=== PATIENT | female | born 1995 | race Caucasian/White ===

== ENCOUNTER 2017-11-21 14:19 | Emergency (ER) | payer BC, OTHER ==
--- NOTE | 2017-11-21 15:12 | EDM.PDOC ---
ED HPI GENERAL MEDICAL PROBLEM - General Chief Complaint: Head Injury Stated Complaint: BUMP FOREHEAD Time Seen by Provider: 11/21/17 15:09 Source of Information: Reports: Patient History Limitations: Reports: No Limitations - History of Present Illness INITIAL COMMENTS - FREE TEXT/NARRATIVE: HISTORY AND PHYSICAL: []21-year-old female presenting with injury to mid forehead just above the bridge of her nose History of Present Illness: []Patient was playing softball and missed the ball striking her in the face Review of Systems: As per history of present illness and below otherwise all systems reviewed and negative. Past medical history: As per history of present illness and as reviewed below otherwise noncontributory. Surgical history: As per history of present illness and as reviewed below otherwise noncontributory. Social history: No reported history of drug or alcohol abuse. Family history: As per history of present illness and as reviewed below otherwise noncontributory. Physical exam: Alert oriented female who feels somewhat dizzy during questions appropriately in full sentences without any shortness of breath HEENT: Atraumatic, normocehpalic, pupils reactive, negative for conjunctival pallor or scleral icterus, mucous membranes moist, throat clear, neck supple, nontender, trachea midline. The nystagmus is present pupils are equal and hand grasp are equal Lungs: Clear to auscultation, breath sounds equal bilaterally, chest non tender. Heart: S1S2, regular, negative for clicks, rubs, or JVD. Abdomen: Soft, nondistended, nontender. Negative for masses or hepatossplenmegaly. Negative for costovertebral tenderness. Pelvis: Stable nontender. Genitourinary: Deferred. Rectal: Deferred Extremities: Atraumatic, negative for cords or calf pain. Neurovascular unremarkable. Neuro: Awake, alert, oriented. Cranial nerves II through XII unremarkable. Cerebellum unremarkable. Motor and sensory unremarkable throughout. Exam nonfocal. Neurological grossly intact Discussed the negative CT scan of fractures no bleeds with the patient. 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 Onset: Today, Sudden headache Pain Score (Numeric/FACES): 7 - Related Data Allergies Allergy/AdvReac Type Severity Reaction Status Date / Time No Known Allergies Allergy Verified 11/21/17 14:40 Home Meds: Home Meds Amphetamine/Dextroamphetamine [Adderall] 25 mg PO DAILY 11/21/17 [History] Desvenlafaxine [Desvenlafaxine ER] 11/21/17 [History] buPROPion [Wellbutrin] 100 mg PO DAILY 11/21/17 [History] Past Medical History - Past Health History Medical/Surgical History: Denies Medical/Surgical History Psychiatric History: Reports: Anxiety, Depression - Infectious Disease History Infectious Disease History: Reports: None Social & Family History - Family History Family Medical History: Noncontributory - Tobacco Use Smoking Status *Q: Current Every Day Smoker Years of Tobacco use: 9 Packs/Tins Daily: 0.5 - Recreational Drug Use Recreational Drug Use: No ED ROS GENERAL - Review of Systems Review Of Systems: ROS reveals no pertinent complaints other than HPI. ED EXAM, HEAD INJURY - Physical Exam Exam: See Below (See dictation) Course - Vital Signs Last Recorded V/S: Last Vital Signs Temp 36.0 C 11/21/17 14:42 Pulse 98 11/21/17 14:42 Resp 20 11/21/17 14:42 BP 153/90 H 11/21/17 14:42 Pulse Ox 97 11/21/17 14:42 - Orders/Labs/Meds Orders: Active Orders 24 hr Category Date Time Status Head wo Cont [CT] Stat Exams 11/21/17 15:12 Taken HCG QUALITATIVE,URINE [URCHEM] Stat Lab 11/21/17 15:10 Ordered UA W/MICROSCOPIC [URIN] Stat Lab 11/21/17 15:10 Ordered Labs: Laboratory Tests 11/21/17 11/21/17 Range/Units 15:10 15:10 Urine Color YELLOW Urine Appearance CLEAR Urine pH 6.0 (5.0-8.0) Ur Specific [place] >= 1.030 (1.001-1.035) Urine Protein NEGATIVE (NEGATIVE) mg/dL Urine Glucose (UA) NEGATIVE (NEGATIVE) mg/dL Urine Ketones 15 H (NEGATIVE) mg/dL Urine Occult Blood NEGATIVE (NEGATIVE) Urine Nitrite NEGATIVE (NEGATIVE) Urine Bilirubin NEGATIVE (NEGATIVE) Urine Urobilinogen 0.2 (<2.0) EU/dL Ur Leukocyte Esterase NEGATIVE (NEGATIVE) Urine RBC NONE SEEN (0-2/HPF) Urine WBC 1-3 (0-5/HPF) Ur Epithelial Cells MANY (NONE-FEW) Urine Bacteria FEW (NEGATIVE) Urine HCG, Qual NEGATIVE (NEGATIVE) Departure - Departure Time of Disposition: 16:54 Disposition: Home, Self-Care 01 Condition: Good Clinical Impression: Concussion with no loss of consciousness - Discharge Information Instructions: Head Injury, Adult Referrals: PCP,None [Primary Care Provider] - Eliana Rocha MD [Physician] - Forms: ED Department Discharge Additional Instructions: The following information is given to patients seen in the emergency department who are being discharged to home. This information is to outline your options for follow-up care. We provide all patients seen in our emergency department with a follow-up referral. The need for follow-up, as well as the timing and circumstances, are variable depending upon the specifics of your emergency department visit. If you don't have a primary care physician on staff, we will provide you with a referral. We always advise you to contact your personal physician following an emergency department visit to inform them of the circumstance of the visit and for follow-up with them and/or the need for any referrals to a consulting specialist. The emergency department will also refer you to a specialist when appropriate. This referral assures that you have the opportunity for followup care with a specialist. All of these measure are taken in an effort to provide you with optimal care, which includes your followup. Under all circumstances we always encourage you to contact your private physician who remains a resource for coordinating your care. When calling for followup care, please make the office aware that this follow-up is from your recent emergency room visit. If for any reason you are refused follow-up, please contact the [facility] emergency department at and asked to speak to the emergency department charge nurse. Off work 48 hours Referral has been made to Dr. Rocha, neurology [facility] - Neu[facility] Professional Building [address] [place] [address], [address] [place] [address] Follow up with your primary care provider Return to the emergency department as needed - My Orders Last 24 Hours: My Active Orders 11/21/17 15:12 Head wo Cont [CT] Stat - Assessment/Plan Last 24 Hours: My Active Orders 11/21/17 15:12 Head wo Cont [CT] Stat
--- NOTE | 2017-11-22 16:02 | CT ---
EXAM DATE: 11/21/17 PATIENT'S AGE: 21 Patient: VALE CAMPOS Facility: [place], [place] Site . Site : 1995 Study: CT Head WO CONT [id number] 4:17:36 PM Ordering Physician: Doctor Heredia Final Report: INDICATION: Pain. Struck in the forehead with a softball. TECHNIQUE: CT Head without contrast. COMPARISON: None. FINDINGS: CSF spaces: Within normal limits for age. Brain parenchyma: The mock-white differentiation is normal. No sign of mass, hemorrhage, or midline shift. Skull base and calvarium: The visualized paranasal sinuses and mastoid air cells are clear. The visualized orbits are grossly unremarkable. No skull fractures. Small scalp hematoma just above the nasal bridge. IMPRESSION: No acute intracranial finding. Small total scalp hematoma. Please note that all CT scans at this facility use dose modulation, iterative reconstruction, and/or weight-based dosing when appropriate to reduce radiation dose to as low as reasonably achievable. Dictated by Dontae Haskins MD @ Nov 21 2017 4:25PM (Electronic Signature) Report Signed by Proxy. GEORGE
== END 2017-11-21 17:07 | disposition home or self-care (01) ==
LOC: MW.ED 14:19
DX: S06.0X0A Concussion without loss of consciousness, initial encounter (principal); F17.210 Nicotine dependence, cigarettes, uncomplicated; W21.07XA Struck by softball, initial encounter
CPT/HCPCS: 70450; 70450-26; 81001; 81025; 99282; 99284-25

== ENCOUNTER 2019-04-21 02:00 | Emergency (ER) | payer BC | END 2019-04-21 02:57 | disposition left against medical advice (07) | LOC: MW.ED 02:00 | DX: Z53.21 Procedure and treatment not carried out due to patient leaving prior to being seen by health care provider (principal) | CPT/HCPCS: 74177-26 ==

== ENCOUNTER 2019-04-21 09:56 | Day surgery (SDC) | payer BC ==
--- NOTE | 2019-04-21 10:10 | EDM.PDOC ---
ED HPI GENERAL MEDICAL PROBLEM - General Chief Complaint: Abdominal Pain Stated Complaint: [facility] Time Seen by Provider: 04/21/19 10:09 Source of Information: Reports: Patient History Limitations: Reports: No Limitations - History of Present Illness INITIAL COMMENTS - FREE TEXT/NARRATIVE: HISTORY AND PHYSICAL: History of present illness: Patient is a 23-year-old female presents to the ED with complaint of abdominal pain. She states that it started yesterday and has progressively gotten worse. The pain is all over but mostly on the right lower quadrant. She states it does radiate into her back. She states she's been nauseous but denies vomiting. She initially had some nonbloody diarrhea this has resolved and her last bowel movement was last night. She denies dysuria, hematuria fevers, chills, cough, sick contacts. LMP approximately 4 weeks ago. Review of systems: As per history of present illness and below otherwise all systems reviewed and negative. Past medical history: As per history of present illness and as reviewed below otherwise noncontributory. Surgical history: As per history of present illness and as reviewed below otherwise noncontributory. Social history: No reported history of drug or alcohol abuse. Family history: As per history of present illness and as reviewed below otherwise noncontributory. Physical exam: General: Patient sitting comfortably in no acute distress and nontoxic appearing HEENT: Atraumatic, normocephalic, pupils reactive, negative for conjunctival pallor or scleral icterus, mucous membranes moist, throat clear, neck supple, nontender, trachea midline. No meningeal signs. Lungs: Clear to auscultation, breath sounds equal bilaterally, chest nontender. Heart: S1S2, regular, negative for clicks, rubs, or overt murmur. Abdomen: Diffuse abdominal tenderness to palpation with more significant tenderness to the right lower quadrant. Soft, nondistended. Negative for masses or hepatosplenomegaly. Negative for costovertebral tenderness. No rigidity, rebound, guarding. Pelvis: Stable nontender. Genitourinary: Deferred. Rectal: Deferred. Extremities: Atraumatic, negative for cords or calf pain. Neurovascular unremarkable. Neuro: Awake, alert, oriented. Cranial nerves II through XII unremarkable. Cerebellum unremarkable. Motor and sensory unremarkable throughout. Exam nonfocal. Notes: Diagnostics: CBC, CMP, lipase, UA, urine hcg, CT abdomen/pelvis w/ contrast Therapeutics: 1L NS IV 30mg Toradol IV 4mg Morphine IV Prescriptions: Impression: Acute appendicitis Plan: Dr. Tillman consulted patient in ED and she will be taken to OR for appendectomy Definitive disposition and diagnosis as appropriate pending reevaluation and review of above. Abdominal Pain Score (Numeric/FACES): 8 - Related Data Allergies Allergy/AdvReac Type Severity Reaction Status Date / Time No Known Allergies Allergy Verified 04/21/19 10:03 Home Meds: Home Meds Desvenlafaxine [Desvenlafaxine ER] 11/21/17 [History] Dextroamphetamine [Dextrostat] 10 mg PO ASDIRECTED 04/21/19 [History] Topiramate [Topamax] 100 mg PO DAILY 04/21/19 [History] Past Medical History - Past Health History Medical/Surgical History: Denies Medical/Surgical History Psychiatric History: Reports: Anxiety, Depression - Infectious Disease History Infectious Disease History: Reports: None Social & Family History - Family History Family Medical History: Noncontributory ED ROS GENERAL - Review of Systems Review Of Systems: ROS reveals no pertinent complaints other than HPI. ED EXAM, GI/ABD - Physical Exam Exam: See Below (see dictation) Course - Vital Signs Last Recorded V/S: Last Vital Signs Temp 97.6 F 04/21/19 10:06 Pulse 97 04/21/19 12:41 Resp 17 04/21/19 12:41 BP 108/72 04/21/19 12:41 Pulse Ox 98 04/21/19 12:41 - Orders/Labs/Meds Orders: Active Orders 24 hr Category Date Time Status Abdomen Pelvis w Cont [CT] Stat Exams 04/21/19 12:18 Ordered Sodium Chloride 0.9% [Saline Flush] Med 04/21/19 10:16 Active 10 ml FLUSH ASDIRECTED PRN Sodium Chloride 0.9% [Saline Flush] Med 04/21/19 10:16 Active 2.5 ml FLUSH ASDIRECTED PRN Saline Lock Insert [OM.PC] Stat Oth 04/21/19 10:16 Ordered Medication Orders Sodium Chloride (Saline Flush) 10 ml FLUSH ASDIRECTED PRN PRN Reason: Keep Vein Open Sodium Chloride (Saline Flush) 2.5 ml FLUSH ASDIRECTED PRN PRN Reason: Keep Vein Open Labs: Laboratory Tests 04/21/19 04/21/19 04/21/19 Range/Units 10:50 10:50 11:05 WBC 19.85 H (4.0-11.0) K/uL RBC 4.21 L (4.30-5.90) M/uL Hgb 13.7 (12.0-16.0) g/dL Hct 40.1 (36.0-46.0) % MCV 95.2 (80.0-98.0) fL MCH 32.5 H (27.0-32.0) pg MCHC 34.2 (31.0-37.0) g/dL RDW Std Deviation 43.3 (28.0-62.0) fl RDW Coeff of Talib 13 (11.0-15.0) % Plt Count 233 (150-400) K/uL MPV 10.10 (7.40-12.00) fL Neut % (Auto) 80.7 H (48.0-80.0) % Lymph % (Auto) 8.0 L (16.0-40.0) % [place] % (Auto) 10.8 (0.0-15.0) % Eos % (Auto) 0.3 (0.0-7.0) % Baso % (Auto) 0.2 (0.0-1.5) % Neut # (Auto) 16.0 H (1.4-5.7) K/uL Lymph # (Auto) 1.6 (0.6-2.4) K/uL [place] # (Auto) 2.2 H (0.0-0.8) K/uL Eos # (Auto) 0.1 (0.0-0.7) K/uL Baso # (Auto) 0.0 (0.0-0.1) K/uL Nucleated RBC % 0.0 /100WBC Nucleated RBCs # 0 K/uL Sodium 140 (136-145) mmol/L Potassium 3.7 (3.5-5.1) mmol/L Chloride 106 (98-107) mmol/L Carbon Dioxide 22.0 (21.0-32.0) mmol/L BUN 8 (7.0-18.0) mg/dL Creatinine 0.8 (0.6-1.0) mg/dL Est Cr Clr Drug Dosing 88.93 mL/min Estimated GFR (MDRD) > 60.0 ml/min Glucose 109 H (74-106) mg/dL Calcium 8.8 (8.5-10.1) mg/dL Total Bilirubin 1.1 H (0.2-1.0) mg/dL AST 17 (15-37) IU/L ALT 21 (14-63) IU/L Alkaline Phosphatase 61 (46-116) U/L Total Protein 7.5 (6.4-8.2) g/dL Albumin 3.7 (3.4-5.0) g/dL Globulin 3.8 (2.6-4.0) g/dL Albumin/Globulin Ratio 1.0 (0.9-1.6) Lipase 106 (73-393) U/L Urine Color YELLOW Urine Appearance HAZY Urine pH 6.5 (5.0-8.0) Ur Specific [place] 1.010 (1.001-1.035) Urine Protein NEGATIVE (NEGATIVE) mg/dL Urine Glucose (UA) NEGATIVE (NEGATIVE) mg/dL Urine Ketones NEGATIVE (NEGATIVE) mg/dL Urine Occult Blood NEGATIVE (NEGATIVE) Urine Nitrite NEGATIVE (NEGATIVE) Urine Bilirubin SMALL H (NEGATIVE) Urine Ictotest POSITIVE Urine Urobilinogen 0.2 (<2.0) EU/dL Ur Leukocyte Esterase NEGATIVE (NEGATIVE) Urine HCG, Qual (NEGATIVE) 04/21/19 Range/Units 11:05 WBC (4.0-11.0) K/uL RBC (4.30-5.90) M/uL Hgb (12.0-16.0) g/dL Hct (36.0-46.0) % MCV (80.0-98.0) fL MCH (27.0-32.0) pg MCHC (31.0-37.0) g/dL RDW Std Deviation (28.0-62.0) fl RDW Coeff of Talib (11.0-15.0) % Plt Count (150-400) K/uL MPV (7.40-12.00) fL Neut % (Auto) (48.0-80.0) % Lymph % (Auto) (16.0-40.0) % [place] % (Auto) (0.0-15.0) % Eos % (Auto) (0.0-7.0) % Baso % (Auto) (0.0-1.5) % Neut # (Auto) (1.4-5.7) K/uL Lymph # (Auto) (0.6-2.4) K/uL [place] # (Auto) (0.0-0.8) K/uL Eos # (Auto) (0.0-0.7) K/uL Baso # (Auto) (0.0-0.1) K/uL Nucleated RBC % /100WBC Nucleated RBCs # K/uL Sodium (136-145) mmol/L Potassium (3.5-5.1) mmol/L Chloride (98-107) mmol/L Carbon Dioxide (21.0-32.0) mmol/L BUN (7.0-18.0) mg/dL Creatinine (0.6-1.0) mg/dL Est Cr Clr Drug Dosing mL/min Estimated GFR (MDRD) ml/min Glucose (74-106) mg/dL Calcium (8.5-10.1) mg/dL Total Bilirubin (0.2-1.0) mg/dL AST (15-37) IU/L ALT (14-63) IU/L Alkaline Phosphatase (46-116) U/L Total Protein (6.4-8.2) g/dL Albumin (3.4-5.0) g/dL Globulin (2.6-4.0) g/dL Albumin/Globulin Ratio (0.9-1.6) Lipase (73-393) U/L Urine Color Urine Appearance Urine pH (5.0-8.0) Ur Specific [place] (1.001-1.035) Urine Protein (NEGATIVE) mg/dL Urine Glucose (UA) (NEGATIVE) mg/dL Urine Ketones (NEGATIVE) mg/dL Urine Occult Blood (NEGATIVE) Urine Nitrite (NEGATIVE) Urine Bilirubin (NEGATIVE) Urine Ictotest Urine Urobilinogen (<2.0) EU/dL Ur Leukocyte Esterase (NEGATIVE) Urine HCG, Qual NEGATIVE (NEGATIVE) Meds: Medications Generic Name Dose Route Start Last Admin Trade Name Freq PRN Reason Stop Dose Admin Sodium Chloride 10 ml 04/21/19 10:16 Saline Flush FLUSH ASDIRECTED PRN Keep Vein Open Sodium Chloride 2.5 ml 04/21/19 10:16 Saline Flush FLUSH ASDIRECTED PRN Keep Vein Open Discontinued Medications Generic Name Dose Route Start Last Admin Trade Name Facundo PRN Reason Stop Dose Admin Sodium Chloride 1,000 mls @ 999 mls/hr 04/21/19 10:16 04/21/19 10:47 Normal Saline IV 04/21/19 11:16 999 mls/hr STAT ONE Administration Iopamidol 100 ml 04/21/19 11:50 04/21/19 11:52 Isovue Multipack-370 (76%) IVPUSH 04/21/19 11:51 100 ml ONETIME STA Administration Ketorolac Tromethamine 30 mg 04/21/19 10:16 04/21/19 10:46 Toradol IVPUSH 04/21/19 10:17 30 mg ONETIME ONE Administration Morphine Sulfate 4 mg 04/21/19 11:21 04/21/19 11:27 Morphine IVPUSH 04/21/19 11:22 4 mg ONETIME ONE Administration Departure - Departure Time of Disposition: 13:06 Disposition: Still A Patient 30 Condition: Good Clinical Impression: Acute appendicitis - Discharge Information Referrals: PCP,Unknown [Primary Care Provider] - Forms: ED Department Discharge - My Orders Last 24 Hours: My Active Orders 04/21/19 10:16 Sodium Chloride 0.9% [Saline Flush] 10 ml FLUSH ASDIRECTED PRN Sodium Chloride 0.9% [Saline Flush] 2.5 ml FLUSH ASDIRECTED PRN Saline Lock Insert [OM.PC] Stat 04/21/19 12:18 Abdomen Pelvis w Cont [CT] Stat - Assessment/Plan Last 24 Hours: My Active Orders 04/21/19 10:16 Sodium Chloride 0.9% [Saline Flush] 10 ml FLUSH ASDIRECTED PRN Sodium Chloride 0.9% [Saline Flush] 2.5 ml FLUSH ASDIRECTED PRN Saline Lock Insert [OM.PC] Stat 04/21/19 12:18 Abdomen Pelvis w Cont [CT] Stat
[2019-04-21] MEDS ORDERED: Ketorolac 30 MG/ML SDV IVPUSH ONE (10:16)
[2019-04-21] MEDS ORDERED: Sodium Chloride 0.9% 2.5 ML Syringe FLUSH PRN (10:16)
[2019-04-21] MEDS ORDERED: Sodium Chloride 0.9% 1,000 ML IV ONE (10:16)
[2019-04-21] MEDS ORDERED: Sodium Chloride 0.9% 10 ML Syringe FLUSH PRN (10:16)
[2019-04-21] MEDS ORDERED: Morphine 4 MG/ML Syringe IVPUSH ONE (11:21)
[2019-04-21 11:22] LABS: BLOOD UREA NITROGEN,BUN 8 mg/dL (7.0-18.0); CHLORIDE,CL 106 mmol/L (98-107); GLUCOSE RANDOM 109 mg/dL (74-106); LIPASE 106 U/L (73-393); POTASSIUM,K 3.7 mmol/L (3.5-5.1); SODIUM,NA 140 mmol/L (136-145)
[2019-04-21] MEDS ORDERED: Iopamidol 755 MG/ML 500 ML Multipack Bottle IVPUSH STA (11:50)
--- NOTE | 2019-04-21 12:12 | CT ---
CT abdomen and pelvis Technique: Multiple axial sections were obtained from above the dome of the diaphragm inferiorly through the pubic symphysis. Intravenous contrast was utilized. No oral contrast was given. Findings: Visualized lung bases show nothing acute. Liver contains no focal parenchymal abnormality. Spleen appears within normal limits. Adrenal glands show no nodule. Pancreas appears within normal limits. Gallbladder contains no calcified gallstones. Kidneys show symmetric contrast enhancement without hydronephrosis or mass. Aorta shows no aneurysm. No retroperitoneal adenopathy or mesenteric abnormalities are seen. No pelvic mass or adenopathy is seen. Dominant follicle appears to be present within the left ovary measuring 2.5 cm. Several areas of increased density are noted within the appendix which is felt to be due to appendicoliths. Appendix is prominent in size measuring 1.1 cm. There is also felt to be mild inflammatory change around the appendix. Findings are felt compatible with early appendicitis. No other inflammatory change is seen. No free fluid is identified. Bone window settings were reviewed which shows spondylolisthesis at L5-S1 which measures 1.2 cm. This space narrowing also noted at L5-S1 with bilateral spondylolytic defects being seen. Impression: 1. Findings compatible with early appendicitis as described above. 2. Spondylolisthesis with disc space narrowing at L5-S1 due to spondylolytic defects. 3. No additional abnormality is appreciated on CT study of the abdomen and pelvis. Diagnostic code #5 MTDD
[2019-04-21] MEDS ORDERED: cefOXitin 2 GM in Premix Bag 1 BAG IV ONE (13:07)
--- NOTE | 2019-04-21 13:26 | PCM.PREANE ---
Preanesthetic Assessment - Anesthesia/Transfusion/Family Hx Anesthesia History: No Prior Anesthesia (local anesthetic for dental extractions ) Family History of Anesthesia Reaction: No - Review of Systems General: No Symptoms Pulmonary: Cough Cardiovascular: No Symptoms Gastrointestinal: Abdominal Pain Neurological: No Symptoms Other: Reports: None - Physical Assessment NPO Status Date: 04/21/19 NPO Status Time: 08:00 Vital Signs: Last Vital Signs Temp 36.4 C 04/21/19 10:06 Pulse 97 04/21/19 12:41 Resp 17 04/21/19 12:41 BP 108/72 04/21/19 12:41 Pulse Ox 98 04/21/19 12:41 Height: 1.6 m Weight: 90.718 kg ASA Class: 2E Mental Status: Alert & Oriented x3 Airway Class: Mallampati = 3 Dentition: Reports: Missing Tooth/Teeth (right lower molar and wisdom teeth) ROM/Head Extension: Full Lungs: Clear to Auscultation, Normal Respiratory Effort Cardiovascular: Regular Rate, Regular Rhythm - Lab Values: Laboratory Last Values WBC 19.85 K/uL (4.0-11.0) H 04/21/19 10:50 RBC 4.21 M/uL (4.30-5.90) L 04/21/19 10:50 Hgb 13.7 g/dL (12.0-16.0) 04/21/19 10:50 Hct 40.1 % (36.0-46.0) 04/21/19 10:50 MCV 95.2 fL (80.0-98.0) 04/21/19 10:50 MCH 32.5 pg (27.0-32.0) H 04/21/19 10:50 MCHC 34.2 g/dL (31.0-37.0) 04/21/19 10:50 RDW Std Deviation 43.3 fl (28.0-62.0) 04/21/19 10:50 RDW Coeff of Talib 13 % (11.0-15.0) 04/21/19 10:50 Plt Count 233 K/uL (150-400) 04/21/19 10:50 MPV 10.10 fL (7.40-12.00) 04/21/19 10:50 Neut % (Auto) 80.7 % (48.0-80.0) H 04/21/19 10:50 Lymph % (Auto) 8.0 % (16.0-40.0) L 04/21/19 10:50 [place] % (Auto) 10.8 % (0.0-15.0) 04/21/19 10:50 Eos % (Auto) 0.3 % (0.0-7.0) 04/21/19 10:50 Baso % (Auto) 0.2 % (0.0-1.5) 04/21/19 10:50 Neut # (Auto) 16.0 K/uL (1.4-5.7) H 04/21/19 10:50 Lymph # (Auto) 1.6 K/uL (0.6-2.4) 04/21/19 10:50 [place] # (Auto) 2.2 K/uL (0.0-0.8) H 04/21/19 10:50 Eos # (Auto) 0.1 K/uL (0.0-0.7) 04/21/19 10:50 Baso # (Auto) 0.0 K/uL (0.0-0.1) 04/21/19 10:50 Nucleated RBC % 0.0 /100WBC 04/21/19 10:50 Nucleated RBCs # 0 K/uL 04/21/19 10:50 Sodium 140 mmol/L (136-145) 04/21/19 10:50 Potassium 3.7 mmol/L (3.5-5.1) 04/21/19 10:50 Chloride 106 mmol/L (98-107) 04/21/19 10:50 Carbon Dioxide 22.0 mmol/L (21.0-32.0) 04/21/19 10:50 BUN 8 mg/dL (7.0-18.0) 04/21/19 10:50 Creatinine 0.8 mg/dL (0.6-1.0) 04/21/19 10:50 Est Cr Clr Drug Dosing 88.93 mL/min 04/21/19 10:50 Estimated GFR (MDRD) > 60.0 ml/min 04/21/19 10:50 Glucose 109 mg/dL (74-106) H 04/21/19 10:50 Calcium 8.8 mg/dL (8.5-10.1) 04/21/19 10:50 Total Bilirubin 1.1 mg/dL (0.2-1.0) H 04/21/19 10:50 AST 17 IU/L (15-37) 04/21/19 10:50 ALT 21 IU/L (14-63) 04/21/19 10:50 Alkaline Phosphatase 61 U/L (46-116) 04/21/19 10:50 Total Protein 7.5 g/dL (6.4-8.2) 04/21/19 10:50 Albumin 3.7 g/dL (3.4-5.0) 04/21/19 10:50 Globulin 3.8 g/dL (2.6-4.0) 04/21/19 10:50 Albumin/Globulin Ratio 1.0 (0.9-1.6) 04/21/19 10:50 Lipase 106 U/L (73-393) 04/21/19 10:50 Urine Color YELLOW 04/21/19 11:05 Urine Appearance HAZY 04/21/19 11:05 Urine pH 6.5 (5.0-8.0) 04/21/19 11:05 Ur Specific [place] 1.010 (1.001-1.035) 04/21/19 11:05 Urine Protein NEGATIVE mg/dL (NEGATIVE) 04/21/19 11:05 Urine Glucose (UA) NEGATIVE mg/dL (NEGATIVE) 04/21/19 11:05 Urine Ketones NEGATIVE mg/dL (NEGATIVE) 04/21/19 11:05 Urine Occult Blood NEGATIVE (NEGATIVE) 04/21/19 11:05 Urine Nitrite NEGATIVE (NEGATIVE) 04/21/19 11:05 Urine Bilirubin SMALL (NEGATIVE) H 04/21/19 11:05 Urine Ictotest POSITIVE 04/21/19 11:05 Urine Urobilinogen 0.2 EU/dL (<2.0) 04/21/19 11:05 Ur Leukocyte Esterase NEGATIVE (NEGATIVE) 04/21/19 11:05 Urine HCG, Qual NEGATIVE (NEGATIVE) 04/21/19 11:05 - Allergies Allergies/Adverse Reactions: Allergies Allergy/AdvReac Type Severity Reaction Status Date / Time No Known Allergies Allergy Verified 04/21/19 10:03 - Acknowledgements Anesthesia Type Planned: General Anesthesia Pt an Appropriate Candidate for the Planned Anesthesia: Yes Alternatives and Risks of Anesthesia Discussed w Pt/Guardian: Yes Pt/Guardian Understands and Agrees with Anesthesia Plan: Yes PreAnesthesia Questionnaire - Past Health History Medical/Surgical History: Denies Medical/Surgical History HEENT History: Reports: None Cardiovascular History: Reports: None Respiratory History: Reports: Bronchitis, Recurrent (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, no episodes in the past 4 weeks), Other (See Below) (chronic tobacco use since she was 11 years old.) Gastrointestinal History: Reports: GERD (controlled with tums.) Genitourinary History: Reports: None Musculoskeletal History: Reports: None Psychiatric History: Reports: Anxiety, Depression Endocrine/Metabolic History: Reports: Obesity/BMI 30+ - Infectious Disease History Infectious Disease History: Reports: None - Past Surgical History HEENT Surgical History: Reports: Oral Surgery (dental extractions with local anesthetic) - SUBSTANCE USE Smoking Status *Q: Current Every Day Smoker Recreational Drug Use History: No - HOME MEDS Home Medications: Home Meds Desvenlafaxine [Desvenlafaxine ER] 11/21/17 [History] Dextroamphetamine [Dextrostat] 10 mg PO ASDIRECTED 04/21/19 [History] Topiramate [Topamax] 100 mg PO DAILY 04/21/19 [History] - CURRENT (IN HOUSE) MEDS Current Meds: Current Medications Cefoxitin Sodium 2 gm/ Premix 50 mls @ 100 mls/hr IV ONETIME ONE Stop: 04/21/19 13:36 Last Admin: 04/21/19 13:12 Dose: 100 mls/hr Lactated Ringer's (Ringers, Lactated) 1,000 mls @ 125 mls/hr IV ASDIRECTED BRET Sodium Chloride (Saline Flush) 10 ml FLUSH ASDIRECTED PRN PRN Reason: Keep Vein Open Last Admin: 04/21/19 13:16 Dose: 10 ml Sodium Chloride (Saline Flush) 2.5 ml FLUSH ASDIRECTED PRN PRN Reason: Keep Vein Open Last Admin: 04/21/19 13:16 Dose: 2.5 ml Discontinued Medications Sodium Chloride (Normal Saline) 1,000 mls @ 999 mls/hr IV STAT ONE Stop: 04/21/19 11:16 Last Admin: 04/21/19 10:47 Dose: 999 mls/hr Iopamidol (Isovue Multipack-370 (76%)) 100 ml IVPUSH ONETIME STA Stop: 04/21/19 11:51 Last Admin: 04/21/19 11:52 Dose: 100 ml Ketorolac Tromethamine (Toradol) 30 mg IVPUSH ONETIME ONE Stop: 04/21/19 10:17 Last Admin: 04/21/19 10:46 Dose: 30 mg Morphine Sulfate (Morphine) 4 mg IVPUSH ONETIME ONE Stop: 04/21/19 11:22 Last Admin: 04/21/19 11:27 Dose: 4 mg
--- NOTE | 2019-04-21 13:27 | PCM.CONS ---
H&P History of Present Illness - General Date of Service: 04/21/19 Admit Problem/Dx: Acute abdomen Source of Information: Patient History Limitations: Reports: No Limitations - History of Present Illness Initial Comments - Free Text/Narative: 23 y/o female who presented to the ER with a 24 hour history of abdominal pain and nausea. No vomiting, fever or chills. Appetite is poor. Symptom Onset Date: 04/20/19 Duration of Symptoms: Reports: Day(s): Abdominal Pain Score (Numeric/FACES): 8 - Related Data Allergies/Adverse Reactions: Allergies Allergy/AdvReac Type Severity Reaction Status Date / Time No Known Allergies Allergy Verified 04/21/19 10:03 Home Medications: Home Meds Desvenlafaxine [Desvenlafaxine ER] 11/21/17 [History] Dextroamphetamine [Dextrostat] 10 mg PO ASDIRECTED 04/21/19 [History] Topiramate [Topamax] 100 mg PO DAILY 04/21/19 [History] Past Medical History - Past Health History Medical/Surgical History: Denies Medical/Surgical History Psychiatric History: Reports: Anxiety, Depression 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) - Infectious Disease History Infectious Disease History: Reports: None - Past Surgical History HEENT Surgical History: Reports: Oral Surgery Social & Family History - Family History Family Medical History: Noncontributory - Tobacco Use Smoking Status *Q: Current Every Day Smoker Years of Tobacco use: 13 Packs/Tins Daily: 0.5 - Caffeine Use Caffeine Use: Reports: Coffee - Recreational Drug Use Recreational Drug Use: No H&P Review of Systems - Review of Systems: Review Of Systems: See Below General: Reports: Decreased Appetite HEENT: Reports: No Symptoms Pulmonary: Reports: No Symptoms Cardiovascular: Reports: No Symptoms Gastrointestinal: Reports: Abdominal Pain, Anorexia, Diarrhea, Decreased Appetite, Nausea Genitourinary: Denies: Dysuria, Frequency, Burning, Urgency, Incontinence, Hematuria, Abnormal Menses Musculoskeletal: Reports: No Symptoms Skin: Denies: Cyanosis, Jaundice Psychiatric: Reports: Depression, Anxiety. Denies: Confusion Neurological: Reports: No Symptoms Hematologic/Lymphatic: Reports: No Symptoms Immunologic: Reports: No Symptoms Exam - Exam Exam: See Below - Vital Signs Vital Signs: Last Vital Signs Temp 97.6 F 04/21/19 10:06 Pulse 97 04/21/19 12:41 Resp 17 04/21/19 12:41 BP 108/72 04/21/19 12:41 Pulse Ox 98 04/21/19 12:41 Weight: 200 lb - Exam Quality Assessment: No: Supplemental Oxygen General: Alert, Oriented, Cooperative, Mild Distress HEENT: Conjunctiva Clear, EACs Clear. No: Scleral Icterus Neck: Supple, Trachea Midline Lungs: Clear to Auscultation, Normal Respiratory Effort Cardiovascular: Regular Rate, Regular Rhythm GI/Abdominal Exam: Normal Bowel Sounds, Soft, No Distention, No Mass, Rebound, Tender. No: Guarding, Rigid (Female) Exam: Deferred Rectal (Female) Exam: Deferred Back Exam: Normal Inspection, Full Range of Motion Peripheral Pulses: 4+: Posterior Tibial (L), Posterior Tibial (R), Dorsalis Pedis (L), Dorsalis Pedis (R) Skin: Warm, Dry, Intact Neurological: Cranial Nerves Intact Neuro Extensive - Mental Status: Alert, Oriented x3, Normal Mood/Affect Psychiatric: Alert, Normal Affect, Normal Mood - Patient Data Lab Results Last 24 hrs: Laboratory Results - last 24 hr 04/21/19 04/21/19 04/21/19 Range/Units 10:50 10:50 11:05 WBC 19.85 H (4.0-11.0) K/uL RBC 4.21 L (4.30-5.90) M/uL Hgb 13.7 (12.0-16.0) g/dL Hct 40.1 (36.0-46.0) % MCV 95.2 (80.0-98.0) fL MCH 32.5 H (27.0-32.0) pg MCHC 34.2 (31.0-37.0) g/dL RDW Std Deviation 43.3 (28.0-62.0) fl RDW Coeff of Talib 13 (11.0-15.0) % Plt Count 233 (150-400) K/uL MPV 10.10 (7.40-12.00) fL Neut % (Auto) 80.7 H (48.0-80.0) % Lymph % (Auto) 8.0 L (16.0-40.0) % [place] % (Auto) 10.8 (0.0-15.0) % Eos % (Auto) 0.3 (0.0-7.0) % Baso % (Auto) 0.2 (0.0-1.5) % Neut # (Auto) 16.0 H (1.4-5.7) K/uL Lymph # (Auto) 1.6 (0.6-2.4) K/uL [place] # (Auto) 2.2 H (0.0-0.8) K/uL Eos # (Auto) 0.1 (0.0-0.7) K/uL Baso # (Auto) 0.0 (0.0-0.1) K/uL Nucleated RBC % 0.0 /100WBC Nucleated RBCs # 0 K/uL Sodium 140 (136-145) mmol/L Potassium 3.7 (3.5-5.1) mmol/L Chloride 106 (98-107) mmol/L Carbon Dioxide 22.0 (21.0-32.0) mmol/L BUN 8 (7.0-18.0) mg/dL Creatinine 0.8 (0.6-1.0) mg/dL Est Cr Clr Drug Dosing 88.93 mL/min Estimated GFR (MDRD) > 60.0 ml/min Glucose 109 H (74-106) mg/dL Calcium 8.8 (8.5-10.1) mg/dL Total Bilirubin 1.1 H (0.2-1.0) mg/dL AST 17 (15-37) IU/L ALT 21 (14-63) IU/L Alkaline Phosphatase 61 (46-116) U/L Total Protein 7.5 (6.4-8.2) g/dL Albumin 3.7 (3.4-5.0) g/dL Globulin 3.8 (2.6-4.0) g/dL Albumin/Globulin Ratio 1.0 (0.9-1.6) Lipase 106 (73-393) U/L Urine Color YELLOW Urine Appearance HAZY Urine pH 6.5 (5.0-8.0) Ur Specific [place] 1.010 (1.001-1.035) Urine Protein NEGATIVE (NEGATIVE) mg/dL Urine Glucose (UA) NEGATIVE (NEGATIVE) mg/dL Urine Ketones NEGATIVE (NEGATIVE) mg/dL Urine Occult Blood NEGATIVE (NEGATIVE) Urine Nitrite NEGATIVE (NEGATIVE) Urine Bilirubin SMALL H (NEGATIVE) Urine Ictotest POSITIVE Urine Urobilinogen 0.2 (<2.0) EU/dL Ur Leukocyte Esterase NEGATIVE (NEGATIVE) Urine HCG, Qual (NEGATIVE) 04/21/19 Range/Units 11:05 WBC (4.0-11.0) K/uL RBC (4.30-5.90) M/uL Hgb (12.0-16.0) g/dL Hct (36.0-46.0) % MCV (80.0-98.0) fL MCH (27.0-32.0) pg MCHC (31.0-37.0) g/dL RDW Std Deviation (28.0-62.0) fl RDW Coeff of Talib (11.0-15.0) % Plt Count (150-400) K/uL MPV (7.40-12.00) fL Neut % (Auto) (48.0-80.0) % Lymph % (Auto) (16.0-40.0) % [place] % (Auto) (0.0-15.0) % Eos % (Auto) (0.0-7.0) % Baso % (Auto) (0.0-1.5) % Neut # (Auto) (1.4-5.7) K/uL Lymph # (Auto) (0.6-2.4) K/uL [place] # (Auto) (0.0-0.8) K/uL Eos # (Auto) (0.0-0.7) K/uL Baso # (Auto) (0.0-0.1) K/uL Nucleated RBC % /100WBC Nucleated RBCs # K/uL Sodium (136-145) mmol/L Potassium (3.5-5.1) mmol/L Chloride (98-107) mmol/L Carbon Dioxide (21.0-32.0) mmol/L BUN (7.0-18.0) mg/dL Creatinine (0.6-1.0) mg/dL Est Cr Clr Drug Dosing mL/min Estimated GFR (MDRD) ml/min Glucose (74-106) mg/dL Calcium (8.5-10.1) mg/dL Total Bilirubin (0.2-1.0) mg/dL AST (15-37) IU/L ALT (14-63) IU/L Alkaline Phosphatase (46-116) U/L Total Protein (6.4-8.2) g/dL Albumin (3.4-5.0) g/dL Globulin (2.6-4.0) g/dL Albumin/Globulin Ratio (0.9-1.6) Lipase (73-393) U/L Urine Color Urine Appearance Urine pH (5.0-8.0) Ur Specific [place] (1.001-1.035) Urine Protein (NEGATIVE) mg/dL Urine Glucose (UA) (NEGATIVE) mg/dL Urine Ketones (NEGATIVE) mg/dL Urine Occult Blood (NEGATIVE) Urine Nitrite (NEGATIVE) Urine Bilirubin (NEGATIVE) Urine Ictotest Urine Urobilinogen (<2.0) EU/dL Ur Leukocyte Esterase (NEGATIVE) Urine HCG, Qual NEGATIVE (NEGATIVE) Result Diagrams: 04/21/19 10:50 04/21/19 10:50 Consult PN Assessment/Plan Procedures: Procedures ASSAY THYROID STIM HORMONE (10/30/16) COMPLETE CBC W/AUTO DIFF WBC (08/16/17) CT HEAD/BRAIN W/O DYE (11/21/17) EMERGENCY DEPT VISIT (11/21/17) INFLUENZA ASSAY W/OPTIC (08/16/17) ROUTINE VENIPUNCTURE (08/16/17) STREP A ASSAY W/OPTIC (07/16/17) URINALYSIS AUTO W/SCOPE (11/21/17) URINE TEST (11/21/17) X-RAY EXAM CHEST 2 VIEWS (08/16/17) (1) Acute appendicitis SNOMED Code(s): 78532970 Code(s): K35.80 - UNSPECIFIED ACUTE APPENDICITIS Current Visit: Yes Problem List Initiated/Reviewed/Updated: Yes My Orders Last 24 Hours: My Active Orders 04/21/19 13:07 cefOXitin [Mefoxin in Dextrose,Iso-Osm 2 GM/50 ML] 2 gm Premix Bag 1 bag IV ONETIME 04/21/19 13:20 Resuscitation Status Routine 04/21/19 13:21 Antiembolic Devices [RC] PER UNIT ROUTINE Insert Urinary Catheter [OM.PC] Timed Oxygen Therapy [RC] ASDIRECTED RT Incentive Spirometry [RC] Q1HWA Skin Preparation [RC] .PREOP Urinary Catheter Assessment [RC] ASDIRECTED Urinary Catheter Assessment [RC] ASDIRECTED Urinary Catheter Assessment [RC] ASDIRECTED Vital Signs [RC] PER UNIT ROUTINE Antiembolic Hose [OM.PC] Routine 04/21/19 13:30 Lactated Ringers @ 125 MLS/HR(1000ml) Lactated Ringers [Ringers, Lactated] 1, 000 ml IV ASDIRECTED 04/21/19 Lunch Nothing Per Oral Diet [DIET] Plan: Laparoscopic appendectomy, possible open appendectomy. Both operative procedures, along with the risks, including, but not limited to, bleeding, infection, pneumonia, deep venous thrombosis, pulmonary emboli, myocardial infarction, and adjacent organ injury have been reviewed with the patient who voices understanding, offers no questions and agrees to proceed.
[2019-04-21] MEDS ORDERED: Bupivacaine 0.5% 10 ML SDV ONE (13:33)
[2019-04-21] MEDS ORDERED: Propofol 200 MG/20 ML SDV ONE (13:43)
[2019-04-21] MEDS ORDERED: Midazolam 1 MG/ML 2 ML SDV ONE (13:43)
[2019-04-21] MEDS ORDERED: fentaNYL 100 MCG/2 ML SDV ONE (13:43)
[2019-04-21] MEDS ORDERED: Lidocaine 2% 5 ML SDV ONE (13:45)
[2019-04-21] MEDS ORDERED: Rocuronium 100 MG/10 ML Syringe ONE (13:46)
[2019-04-21] MEDS ORDERED: Dexamethasone 4 MG/ML 5 ML MDV ONE (13:46)
[2019-04-21] MEDS ORDERED: Ondansetron 4 MG/2 ML SDV ONE (13:46)
[2019-04-21] MEDS ORDERED: ceFAZolin 1 GM Vial ONE (13:51)
[2019-04-21] MEDS: Lactated Ringers 1,000 ML IV SCH (13:57)
[2019-04-21] MEDS ORDERED: Phenylephrine/Normal Saline 100 MCG/ML 10 ML Syringe ONE (14:25)
[2019-04-21] MEDS ORDERED: ePHEDrine 50 MG/ML SDV ONE (14:34)
[2019-04-21] MEDS ORDERED: Albuterol 6.7 GM Inhaler INH ONE (14:40)
[2019-04-21] MEDS ORDERED: Glycopyrrolate 0.2 MG/ML SDV ONE ×2 (15:04→15:20)
[2019-04-21] MEDS ORDERED: Neostigmine Methylsulfate 1 MG/ML 5 ML Syringe ONE (15:04)
[2019-04-21] MEDS ORDERED: fentaNYL 100 MCG/2 ML SDV IVPUSH PRN (15:07)
[2019-04-21] MEDS ORDERED: Ondansetron 4 MG/2 ML SDV IVPUSH PRN (15:07)
[2019-04-21] MEDS ORDERED: Sugammadex Sodium 200 MG/2 ML VIAL ONE (15:14)
--- NOTE | 2019-04-21 15:27 | PCM.OPNOTE ---
- General Post-Op/Procedure Note Date of Surgery/Procedure: 04/21/19 Operative Procedure(s): Laparoscopic appendectomy Pre Op Diagnosis: Acute appendicitis Post-Op Diagnosis: Acute perforated appendicitis with localized peritonitis Anesthesia Technique: General ET Tube (ASA IIE) Primary Surgeon: Jalen Tillman Fluid Replacement, Intraop: 1,300 Output, Urine Amount: 400 EBL in mLs: 10 Condition: Good Free Text/Narrative:: DICTATION [id number] CPT CODE [id number]
[2019-04-21] MEDS ORDERED: cefOXitin 1 GM in Premix Bag 1 BAG IV SCH (15:30)
[2019-04-21] MEDS ORDERED: Lactated Ringers 1,000 ML IV SCH (15:30)
[2019-04-21] MEDS: HYDROmorphone 2 MG/ML Syringe IVPUSH PRN ×2 (15:50→15:57)
--- NOTE | 2019-04-21 16:22 | OR ---
SURGEON: Jalen Tillman M.D. DATE OF PROCEDURE: 04/21/2019 OPERATION PERFORMED: Laparoscopic appendectomy. PRIMARY SURGEON: Jalen Tillman MD. ANESTHESIA: General endotracheal. ASA CLASSIFICATION: IIE. PREOPERATIVE DIAGNOSIS: Acute appendicitis. POSTOPERATIVE DIAGNOSIS: Acute gangrenous appendicitis with fecaliths. ESTIMATED BLOOD LOSS: 10 mL. INTRAOPERATIVE FLUID REPLACEMENT: 1300 mL. INTRAOPERATIVE URINE OUTPUT: 400 mL. DESCRIPTION OF PROCEDURE: The patient was taken to the operating room, placed on the operating table in the supine position. Time-out was called for appropriate identification of the patient and procedure. Sequential compression boots were placed. Following satisfactory attainment of general endotracheal anesthesia, a Cortes catheter was placed in the patient's urinary bladder. The abdomen was prepped with DuraPrep solution. Sterile drapes were applied. The skin just above the umbilicus was infiltrated with 0.5% Marcaine solution. The skin incision was made and deepened through the subcutaneous tissue obtaining hemostasis with the use of electrocautery. The Veress needle was introduced into the peritoneal cavity. Saline drop test was positive. Carbon dioxide pneumoperitoneum was established with the relief set at 13 cm of water. Once a satisfactory pneumoperitoneum was established, 5 mm camera and port were placed through the supraumbilical incision. The patient was now positioned with her head down and rolled to the left. Under camera vision, suprapubic port was placed just above the panniculus under direct vision. Again, the skin was infiltrated with 0.5% Marcaine solution. Appropriate site for left lower quadrant port was chosen and again the skin infiltrated with 0.5% Marcaine solution prior to inserting the trocar. The appendix was grasped and was acutely inflamed. The mesoappendix was taken down with the Harmonic scalpel. There was a fecalith present and that did spill out, but was able to be retrieved, recovered. The appendix, having had the mesoappendix taken down with the Harmonic scalpel, was now divided using the laparoscopic Endo-NGOZI using a 45 mm blue load. The appendix was properly placed in an Endo Catch bag. The right lower quadrant was then irrigated with 1 L of 1% Ancef solution. Approximately 600 to 700 mL of fluid was aspirated, although some fluid was left behind. The appendiceal stump and cecum were inspected and no bleeding was noted and the staple line appeared intact. The 12 mm suprapubic port and Endo Catch containing appendix were removed under camera vision. Under camera vision, the left lower quadrant port was removed and finally the supraumbilical camera and port were removed. Wounds were inspected for hemostasis and small bleeding sites were electrocoagulated. The suprapubic and supraumbilical incisions were closed in 2 layers approximating the subcutaneous tissue with 3-0 Vicryl and the skin with subcuticular 4-0 Monocryl. The left lower quadrant incision was closed with subcuticular 4-0 Monocryl. All incisions were Steri-Stripped and dressed with sterile Tegaderm pads. Prior to emergence from anesthesia, the Cortes catheter was removed. Following emergence from anesthesia and extubation, the patient was taken to recovery room in stable condition. NARESH WHITMORE /[id number]
--- NOTE | 2019-04-21 16:25 | PCM.POSTAN ---
POST ANESTHESIA ASSESSMENT - MENTAL STATUS Mental Status: Alert, Oriented - VITAL SIGNS Vital Signs: Last Vital Signs Temp 37.0 C 04/21/19 15:31 Pulse 90 04/21/19 16:11 Resp 14 04/21/19 16:11 BP 119/51 L 04/21/19 16:11 Pulse Ox 91 L 04/21/19 16:11 - RESPIRATORY Respiratory Status: Respiratory Rate WNL, Airway Patent, O2 Saturation Stable ( spo2 93% on nasal cannula. patient has possible YUNIER. Mother mentioned during preop eval. that Nora does snore at night. ) - CARDIOVASCULAR CV Status: Pulse Rate WNL, Blood Pressure Stable - GASTROINTESTINAL GI Status: No Symptoms - PAIN Pain Score: 3 - POST OP HYDRATION Hydration Status: Adequate & Stable - OBSERVATIONS Free Text/Narrative:: The patient has no complaints at this time. There were no apparent anesthetic complications at this time.
[2019-04-21] MEDS: Morphine 10 MG/ML Syringe IVPUSH PRN ×3 (18:36→22:19)
[2019-04-21] MEDS: cefOXitin 1 GM in Premix Bag 1 BAG IV SCH (18:42)
[2019-04-21] MEDS: Acetaminophen/HYDROcodone 325-5 MG Tab PO PRN (18:51)
[2019-04-22] MEDS: Morphine 10 MG/ML Syringe IVPUSH PRN ×3 (00:12→07:21)
[2019-04-22] MEDS: cefOXitin 1 GM in Premix Bag 1 BAG IV SCH (00:16)
[2019-04-22] MEDS: Acetaminophen/HYDROcodone 325-5 MG Tab PO PRN ×3 (01:08→12:53)
[2019-04-22] MEDS: Lactated Ringers 1,000 ML IV SCH (04:20)
--- NOTE | 2019-04-22 08:01 | PCM48HPAN ---
Post Anesthesia Note - EVALUATION WITHIN 48HRS OF ANESTHETIC Vital Signs in Normal Range: Yes Patient Participated in Evaluation: Yes Respiratory Function Stable: Yes Airway Patent: Yes Cardiovascular Function Stable: Yes Hydration Status Stable: Yes Pain Control Satisfactory: Yes (still on morphine. ) Nausea and Vomiting Control Satisfactory: Yes Mental Status Recovered: Yes Vital Signs: Last Vital Signs Temp 36.8 C 04/22/19 07:15 Pulse 102 H 04/22/19 07:15 Resp 16 04/22/19 07:15 BP 114/66 04/22/19 07:15 Pulse Ox 98 04/22/19 07:15 - COMMENTS/OBSERVATIONS Free Text/Narrative:: There were no apparent anesthetic complications at this time.
[2019-04-22] MEDS ORDERED: ClonazePAM 0.5 MG Tab PO PRN (09:17)
--- NOTE | 2019-04-22 09:24 | PCM.SURGPN ---
- General Info Date of Service: 04/22/19 POD#: 1 Post-Op Diagnosis: Acute appendicitis Functional Status: Reports: Pain Controlled, Tolerating Diet, Ambulating, Incentive Spirometry - Review of Systems General: Reports: No Symptoms. Denies: Fever, Weakness, Fatigue HEENT: Reports: No Symptoms Pulmonary: Denies: Shortness of Breath, Cough Cardiovascular: Reports: No Symptoms Gastrointestinal: Reports: Abdominal Pain, Decreased Appetite. Denies: Constipation, Diarrhea, Nausea, Vomiting Genitourinary: Denies: Dysuria, Frequency, Burning, Pain Musculoskeletal: Reports: No Symptoms Skin: Reports: No Symptoms Neurological: Reports: No Symptoms Psychiatric: Reports: No Symptoms - Patient Data Vitals - Most Recent: Last Vital Signs Temp 98.2 F 04/22/19 07:15 Pulse 102 H 04/22/19 07:15 Resp 16 04/22/19 07:15 BP 114/66 04/22/19 07:15 Pulse Ox 98 04/22/19 07:15 Weight - Most Recent: 200 lb I&O - Last 24 Hours: Intake & Output 04/21/19 04/22/19 04/22/19 19:59 03:59 11:59 Intake Total 1300 2137 Output Total 800 575 Balance 500 1562 Lab Results Last 24 Hrs: Laboratory Results - last 24 hr 04/21/19 04/21/19 04/21/19 Range/Units 10:50 10:50 11:05 WBC 19.85 H (4.0-11.0) K/uL RBC 4.21 L (4.30-5.90) M/uL Hgb 13.7 (12.0-16.0) g/dL Hct 40.1 (36.0-46.0) % MCV 95.2 (80.0-98.0) fL MCH 32.5 H (27.0-32.0) pg MCHC 34.2 (31.0-37.0) g/dL RDW Std Deviation 43.3 (28.0-62.0) fl RDW Coeff of Talib 13 (11.0-15.0) % Plt Count 233 (150-400) K/uL MPV 10.10 (7.40-12.00) fL Neut % (Auto) 80.7 H (48.0-80.0) % Lymph % (Auto) 8.0 L (16.0-40.0) % Desha % (Auto) 10.8 (0.0-15.0) % Eos % (Auto) 0.3 (0.0-7.0) % Baso % (Auto) 0.2 (0.0-1.5) % Neut # (Auto) 16.0 H (1.4-5.7) K/uL Lymph # (Auto) 1.6 (0.6-2.4) K/uL Desha # (Auto) 2.2 H (0.0-0.8) K/uL Eos # (Auto) 0.1 (0.0-0.7) K/uL Baso # (Auto) 0.0 (0.0-0.1) K/uL Add Manual Diff Neutrophils % (Manual) (48.0-80.0) % Band Neutrophils % % Lymphocytes % (Manual) (16.0-40.0) % Monocytes % (Manual) (0.0-15.0) % Nucleated RBC % 0.0 /100WBC Absolute Seg Neuts (1.4-5.7) Band Neutrophils # Lymphocytes # (Manual) (0.6-2.4) Monocytes # (Manual) (0.0-0.8) Nucleated RBCs # 0 K/uL Sodium 140 (136-145) mmol/L Potassium 3.7 (3.5-5.1) mmol/L Chloride 106 (98-107) mmol/L Carbon Dioxide 22.0 (21.0-32.0) mmol/L BUN 8 (7.0-18.0) mg/dL Creatinine 0.8 (0.6-1.0) mg/dL Est Cr Clr Drug Dosing 88.93 mL/min Estimated GFR (MDRD) > 60.0 ml/min Glucose 109 H (74-106) mg/dL Calcium 8.8 (8.5-10.1) mg/dL Total Bilirubin 1.1 H (0.2-1.0) mg/dL AST 17 (15-37) IU/L ALT 21 (14-63) IU/L Alkaline Phosphatase 61 (46-116) U/L Total Protein 7.5 (6.4-8.2) g/dL Albumin 3.7 (3.4-5.0) g/dL Globulin 3.8 (2.6-4.0) g/dL Albumin/Globulin Ratio 1.0 (0.9-1.6) Lipase 106 (73-393) U/L Urine Color YELLOW Urine Appearance HAZY Urine pH 6.5 (5.0-8.0) Ur Specific [place] 1.010 (1.001-1.035) Urine Protein NEGATIVE (NEGATIVE) mg/dL Urine Glucose (UA) NEGATIVE (NEGATIVE) mg/dL Urine Ketones NEGATIVE (NEGATIVE) mg/dL Urine Occult Blood NEGATIVE (NEGATIVE) Urine Nitrite NEGATIVE (NEGATIVE) Urine Bilirubin SMALL H (NEGATIVE) Urine Ictotest POSITIVE Urine Urobilinogen 0.2 (<2.0) EU/dL Ur Leukocyte Esterase NEGATIVE (NEGATIVE) Urine HCG, Qual (NEGATIVE) 04/21/19 04/22/19 Range/Units 11:05 06:20 WBC 15.13 H (4.0-11.0) K/uL RBC 3.78 L (4.30-5.90) M/uL Hgb 12.1 (12.0-16.0) g/dL Hct 36.7 (36.0-46.0) % MCV 97.1 (80.0-98.0) fL MCH 32.0 (27.0-32.0) pg MCHC 33.0 (31.0-37.0) g/dL RDW Std Deviation 46.1 (28.0-62.0) fl RDW Coeff of Talib 13 (11.0-15.0) % Plt Count 225 (150-400) K/uL MPV 10.40 (7.40-12.00) fL Neut % (Auto) (48.0-80.0) % Lymph % (Auto) (16.0-40.0) % Desha % (Auto) (0.0-15.0) % Eos % (Auto) (0.0-7.0) % Baso % (Auto) (0.0-1.5) % Neut # (Auto) (1.4-5.7) K/uL Lymph # (Auto) (0.6-2.4) K/uL Desha # (Auto) (0.0-0.8) K/uL Eos # (Auto) (0.0-0.7) K/uL Baso # (Auto) (0.0-0.1) K/uL Add Manual Diff YES Neutrophils % (Manual) 74 (48.0-80.0) % Band Neutrophils % 6 % Lymphocytes % (Manual) 13 L (16.0-40.0) % Monocytes % (Manual) 7 (0.0-15.0) % Nucleated RBC % 0.0 /100WBC Absolute Seg Neuts 11.2 H (1.4-5.7) Band Neutrophils # 0.9 Lymphocytes # (Manual) 2.0 (0.6-2.4) Monocytes # (Manual) 1.1 H (0.0-0.8) Nucleated RBCs # 0 K/uL Sodium (136-145) mmol/L Potassium (3.5-5.1) mmol/L Chloride (98-107) mmol/L Carbon Dioxide (21.0-32.0) mmol/L BUN (7.0-18.0) mg/dL Creatinine (0.6-1.0) mg/dL Est Cr Clr Drug Dosing mL/min Estimated GFR (MDRD) ml/min Glucose (74-106) mg/dL Calcium (8.5-10.1) mg/dL Total Bilirubin (0.2-1.0) mg/dL AST (15-37) IU/L ALT (14-63) IU/L Alkaline Phosphatase (46-116) U/L Total Protein (6.4-8.2) g/dL Albumin (3.4-5.0) g/dL Globulin (2.6-4.0) g/dL Albumin/Globulin Ratio (0.9-1.6) Lipase (73-393) U/L Urine Color Urine Appearance Urine pH (5.0-8.0) Ur Specific [place] (1.001-1.035) Urine Protein (NEGATIVE) mg/dL Urine Glucose (UA) (NEGATIVE) mg/dL Urine Ketones (NEGATIVE) mg/dL Urine Occult Blood (NEGATIVE) Urine Nitrite (NEGATIVE) Urine Bilirubin (NEGATIVE) Urine Ictotest Urine Urobilinogen (<2.0) EU/dL Ur Leukocyte Esterase (NEGATIVE) Urine HCG, Qual NEGATIVE (NEGATIVE) Med Orders - Current: Current Medications Hydrocodone Bitart/Acetaminophen ([place] 325-5 Mg) 1 tab PO Q6H PRN PRN Reason: Pain (moderate 4-6) Last Admin: 04/22/19 07:14 Dose: 1 tab Clonazepam (Klonopin) 0.5 mg PO ASDIRECTED PRN PRN Reason: Anxiety Dextroamphetamine Sulfate (Dextrostat) 10 mg PO BID BRET Fentanyl (Sublimaze) 50 mcg IVPUSH Q5M PRN PRN Reason: Pain (severe 7-10) Stop: 04/22/19 15:08 Hydromorphone HCl (Dilaudid) 0.25 mg IVPUSH .Q5MIN PRN PRN Reason: Pain (severe 7-10) Stop: 04/22/19 15:10 Last Admin: 04/21/19 15:57 Dose: 0.25 mg Lactated Ringer's (Ringers, Lactated) 1,000 mls @ 125 mls/hr IV ASDIRECTED BRET Last Admin: 04/22/19 04:20 Dose: 125 mls/hr Lactated Ringer's (Ringers, Lactated) 1,000 mls @ 125 mls/hr IV ASDIRECTED [facility] Last Admin: 04/21/19 17:54 Dose: 125 mls/hr Non-Formulary Medication (Desvenlafaxine [Desvenlafaxine Er]) 100 mg PO DAILY [facility] Non-Formulary Medication (Nifedipine [Nifedipine Er]) 30 mg PO DAILY [facility] Non-Formulary Medication (Norethindrone [Norethindrone]) 0.35 mg PO DAILY [facility] Ondansetron HCl (Zofran) 4 mg IVPUSH ONETIME PRN PRN Reason: Nausea or vomiting Sodium Chloride (Saline Flush) 10 ml FLUSH ASDIRECTED PRN PRN Reason: Keep Vein Open Last Admin: 04/21/19 13:16 Dose: 10 ml Sodium Chloride (Saline Flush) 2.5 ml FLUSH ASDIRECTED PRN PRN Reason: Keep Vein Open Last Admin: 04/21/19 13:16 Dose: 2.5 ml Topiramate (Topamax) 100 mg PO DAILY [facility] Discontinued Medications Albuterol (Proventil Hfa) Confirm Administered Dose 6.7 gm INH .STK-MED ONE Stop: 04/21/19 14:41 Bupivacaine HCl (Sensorcaine-Mpf 0.5%) Confirm Administered Dose 10 ml .ROUTE .STK-MED ONE Stop: 04/21/19 13:34 Cefazolin Sodium (Ancef) Confirm Administered Dose 1 gm .ROUTE .STK-MED ONE Stop: 04/21/19 13:52 Dexamethasone (Dexamethasone) Confirm Administered Dose 20 mg .ROUTE .STK-MED ONE Stop: 04/21/19 13:47 Ephedrine Sulfate (Ephedrine Sulfate) Confirm Administered Dose 50 mg .ROUTE .STK-MED ONE Stop: 04/21/19 14:35 Fentanyl (Sublimaze) Confirm Administered Dose 100 mcg .ROUTE .STK-MED ONE Stop: 04/21/19 13:44 Glycopyrrolate (Robinul) Confirm Administered Dose 0.4 mg .ROUTE .STK-MED ONE Stop: 04/21/19 15:05 Glycopyrrolate (Robinul) Confirm Administered Dose 0.2 mg .ROUTE .STK-MED ONE Stop: 04/21/19 15:21 Sodium Chloride (Normal Saline) 1,000 mls @ 999 mls/hr IV STAT ONE Stop: 04/21/19 11:16 Last Admin: 04/21/19 10:47 Dose: 999 mls/hr Cefoxitin Sodium 2 gm/ Premix 50 mls @ 100 mls/hr IV ONETIME ONE Stop: 04/21/19 13:36 Last Admin: 04/21/19 13:12 Dose: 100 mls/hr Acetaminophen (Ofirmev) Confirm Administered Dose 100 mls @ as directed IV .STK- MED ONE Stop: 04/21/19 13:46 Cefoxitin Sodium 1 gm/ Premix 50 mls @ 100 mls/hr IV Q6H BRET Stop: 04/21/19 21:59 Last Admin: 04/21/19 17:33 Dose: Not Given Cefoxitin Sodium 1 gm/ Premix 50 mls @ 100 mls/hr IV Q6H BRET Stop: 04/22/19 01:29 Last Admin: 04/22/19 00:16 Dose: 100 mls/hr Iopamidol (Isovue Multipack-370 (76%)) 100 ml IVPUSH ONETIME STA Stop: 04/21/19 11:51 Last Admin: 04/21/19 11:52 Dose: 100 ml Ketorolac Tromethamine (Toradol) 30 mg IVPUSH ONETIME ONE Stop: 04/21/19 10:17 Last Admin: 04/21/19 10:46 Dose: 30 mg Lidocaine (Xylocaine-Mpf 2%) Confirm Administered Dose 5 ml .ROUTE .STK-MED ONE Stop: 04/21/19 13:46 Midazolam HCl (Versed 1 Mg/Ml) Confirm Administered Dose 2 mg .ROUTE .STK-MED ONE Stop: 04/21/19 13:44 Morphine Sulfate (Morphine) 4 mg IVPUSH ONETIME ONE Stop: 04/21/19 11:22 Last Admin: 04/21/19 11:27 Dose: 4 mg Morphine Sulfate (Morphine) 0 mg IVPUSH Q1H PRN PRN Reason: Pain (severe 7-10) Last Admin: 04/22/19 07:21 Dose: 4 mg Neostigmine Methylsulfate (Neostigmine) Confirm Administered Dose 5 mg .ROUTE .STK-MED ONE Stop: 04/21/19 15:05 Ondansetron HCl (Zofran) Confirm Administered Dose 4 mg .ROUTE .STK-MED ONE Stop: 04/21/19 13:47 Phenylephrine HCl (Phenylephrine In Ns 100 Mcg/Ml) Confirm Administered Dose 1 mg .ROUTE .STK-MED ONE Stop: 04/21/19 14:26 Propofol (Diprivan 20 Ml) Confirm Administered Dose 200 mg .ROUTE .STK-MED ONE Stop: 04/21/19 13:44 Rocuronium [place] (Zemuron) Confirm Administered Dose 100 mg .ROUTE .STK-MED ONE Stop: 04/21/19 13:47 Succinylcholine Chloride (Succinylcholine Chloride) Confirm Administered Dose 200 mg .ROUTE .STK-MED ONE Stop: 04/21/19 13:47 Sugammadex Sodium (Bridion) Confirm Administered Dose 200 mg .ROUTE .STK-MED ONE Stop: 04/21/19 15:15 - Exam Wound/Incisions: Dressing Dry and Intact, No Drainage Quality Assessment: Supplemental Oxygen General: Alert, Oriented, Cooperative, Mild Distress. No: Sedated, Lethargic HEENT: Pupils Equal, Pupils Reactive. No: Scleral Icterus Neck: Supple Lungs: Clear to Auscultation, Normal Respiratory Effort Cardiovascular: Regular Rate, Regular Rhythm GI/Abdominal Exam: Normal Bowel Sounds, Soft, Non-Tender, No Distention Skin: Warm, Dry, Intact Psy/Mental Status: Anxious - Problem List & Annotations (1) Acute appendicitis SNOMED Code(s): 20263949 Code(s): K35.80 - UNSPECIFIED ACUTE APPENDICITIS Status: Acute Current Visit: Yes - Problem List Review Problem List Initiated/Reviewed/Updated: Yes - My Orders Last 24 Hours: Active Orders 24 hr Category Date Time Status Antiembolic Devices [RC] PER UNIT ROUTINE Care 04/21/19 13:21 Active Communication Order [RC] ROUTINE Care 04/22/19 09:20 Ordered Insert Urinary Catheter [OM.PC] Timed Care 04/21/19 13:21 Ordered Notify Provider Consults [RC] ASDIRECTED Care 04/21/19 12:46 Active Oxygen Therapy [RC] ASDIRECTED Care 04/21/19 13:21 Active Pulse Oximetry [RC] ASDIRECTED Care 04/21/19 15:24 Active RT Incentive Spirometry [RC] Q1HWA Care 04/21/19 15:24 Active Skin Preparation [RC] .PREOP Care 04/21/19 13:21 Active Up ad [place] [RC] PER UNIT ROUTINE Care 04/21/19 15:24 Active Vital Signs [RC] Q4H Care 04/21/19 13:21 Active Consult to Physician [CONS] Stat Cons 04/21/19 12:45 Active Advance Diet Instructions [DIET] Diet 04/21/19 Dinner Active Acetaminophen/HYDROcodone [[place] 325-5 MG] Med 04/21/19 15:25 Active 1 tab PO Q6H PRN ClonazePAM [KlonoPIN] Med 04/22/19 09:17 Ordered 0.5 mg PO ASDIRECTED PRN Desvenlafaxine [Desvenlafaxine ER] Med 04/22/19 09:30 Ordered 100 mg PO DAILY Dextroamphetamine [Dextrostat] Med 04/22/19 09:30 Ordered 10 mg PO BID HYDROmorphone [Dilaudid] Med 04/21/19 15:10 Active 0.25 mg IVPUSH .Q5MIN PRN Lactated Ringers [Ringers, Lactated] 1,000 ml Med 04/21/19 13:30 Active IV ASDIRECTED Lactated Ringers [Ringers, Lactated] 1,000 ml Med 04/21/19 15:30 Active IV ASDIRECTED NIFEdipine [Nifedipine ER] Med 04/22/19 09:30 Ordered 30 mg PO DAILY Norethindrone [Norethindrone] Med 04/22/19 09:30 Ordered 0.35 mg PO DAILY Ondansetron [Zofran] Med 04/21/19 15:07 Active 4 mg IVPUSH ONETIME PRN Sodium Chloride 0.9% [Saline Flush] Med 04/21/19 10:16 Active 10 ml FLUSH ASDIRECTED PRN Sodium Chloride 0.9% [Saline Flush] Med 04/21/19 10:16 Active 2.5 ml FLUSH ASDIRECTED PRN Topiramate [Topamax] Med 04/22/19 09:30 Ordered 100 mg PO DAILY fentaNYL [Sublimaze] Med 04/21/19 15:07 Active 50 mcg IVPUSH Q5M PRN Antiembolic Hose [OM.PC] Routine Oth 04/21/19 13:21 Ordered Saline Lock Insert [OM.PC] Stat Oth 04/21/19 10:16 Ordered Resuscitation Status Routine Resus Stat 04/21/19 13:20 Ordered Medication Orders Hydrocodone Bitart/Acetaminophen ([place] 325-5 Mg) 1 tab PO Q6H PRN PRN Reason: Pain (moderate 4-6) Last Admin: 04/22/19 07:14 Dose: 1 tab Admin: 04/22/19 01:08 Dose: 1 tab Admin: 04/21/19 18:51 Dose: 1 tab Clonazepam (Klonopin) 0.5 mg PO ASDIRECTED PRN PRN Reason: Anxiety Dextroamphetamine Sulfate (Dextrostat) 10 mg PO BID BRET Fentanyl (Sublimaze) 50 mcg IVPUSH Q5M PRN PRN Reason: Pain (severe 7-10) Stop: 04/22/19 15:08 Hydromorphone HCl (Dilaudid) 0.25 mg IVPUSH .Q5MIN PRN PRN Reason: Pain (severe 7-10) Stop: 04/22/19 15:10 Last Admin: 04/21/19 15:57 Dose: 0.25 mg Admin: 04/21/19 15:50 Dose: 0.25 mg Lactated Ringer's (Ringers, Lactated) 1,000 mls @ 125 mls/hr IV ASDIRECTED BRET Last Admin: 04/22/19 04:20 Dose: 125 mls/hr Infusion: 04/21/19 21:57 Dose: 125 mls/hr Admin: 04/21/19 13:57 Dose: 125 mls/hr Lactated Ringer's (Ringers, Lactated) 1,000 mls @ 125 mls/hr IV ASDIRECTED [facility] Last Admin: 04/21/19 17:54 Dose: 125 mls/hr Non-Formulary Medication (Desvenlafaxine [Desvenlafaxine Er]) 100 mg PO DAILY [facility] Non-Formulary Medication (Nifedipine [Nifedipine Er]) 30 mg PO DAILY [facility] Non-Formulary Medication (Norethindrone [Norethindrone]) 0.35 mg PO DAILY [facility] Ondansetron HCl (Zofran) 4 mg IVPUSH ONETIME PRN PRN Reason: Nausea or vomiting Sodium Chloride (Saline Flush) 10 ml FLUSH ASDIRECTED PRN PRN Reason: Keep Vein Open Last Admin: 04/21/19 13:16 Dose: 10 ml Sodium Chloride (Saline Flush) 2.5 ml FLUSH ASDIRECTED PRN PRN Reason: Keep Vein Open Last Admin: 04/21/19 13:16 Dose: 2.5 ml Topiramate (Topamax) 100 mg PO DAILY [facility] - Assessment Assessment (Free Text/Narrative):: Patient is hemodynamically stable. Quite anxious. Afebrile. VSS. WBC coming down. - Plan Plan (Free Text/Narrative):: D/C Morphine. Ambulate 12X daily. Restart home medications. Possible discharge later today.
[2019-04-22] MEDS ORDERED: NIFEdipine 30 MG Tab.ER PO SCH (09:30)
[2019-04-22] MEDS ORDERED: Desvenlafaxine [Desvenlafaxine Er] 100 MG PO SCH (09:30)
[2019-04-22] MEDS ORDERED: Topiramate 100 MG Tab PO SCH (09:30)
== END 2019-04-22 15:00 | disposition home or self-care (01) ==
LOC: MW.ED 09:56 → MW.SDS 13:14 → MW.MS 13:17 → MW.SDS 04-22 15:00
PROVIDERS: ATTEND Surgery
DX: K35.33 Acute appendicitis with perforation, localized peritonitis, and gangrene, with abscess (principal); K38.8 Other specified diseases of appendix; K38.1 Appendicular concretions; F32.9 Major depressive disorder, single episode, unspecified; F17.210 Nicotine dependence, cigarettes, uncomplicated; Z79.899 Other long term (current) drug therapy
CPT/HCPCS: 36415; 44970; 74177; 80053; 81003; 81025; 83690; 85025; 96361; 96365; 96375; 99285; A9270; J0131; J0330; J0690; J0694; J1100; J1170; J1885; J2001; J2250; J2270; J2370; J2405; J2704; J3010; J3490; J7040; J7120; Q9967; 88304